=== PATIENT | female | born 1990 | race African-American/Black ===

== ENCOUNTER 2019-03-08 13:28 | Emergency (ER) | payer SELFPAY ==
[~2019-03-08] VITALS: Ht 165.1 cm; Wt 44.5 kg
[2019-03-08 13:32] VITALS: BP 110/66; TEMP 98.7
[2019-03-08 13:59] LABS: STREP SCREEN POSITIVE
[2019-03-08] MEDS ORDERED: AMOXICILLIN 50500 MG PO (14:18)
[2019-03-08 14:27] VITALS: PULSE 86
== END 2019-03-08 14:27 | disposition home or self-care (01) ==
LOC: COL.ER 13:28
PROVIDERS: Physician Assistant
DX: J02.0 Streptococcal pharyngitis (principal); F17.210 Nicotine dependence, cigarettes, uncomplicated

== ENCOUNTER → 2019-03-19 | Emergency (ER) | payer SELFPAY ==
[~2019-03-19] VITALS: Ht 165.1 cm; Wt 44.5 kg
[~2019-03-19] MED LIST: AMOXICILLIN 50500 MG PO
[2019-03-19 10:57] VITALS: BP 108/70; PULSE 96; TEMP 98.5
== END ==
LOC: COL.ER 10:52
DX: L29.9 Pruritus, unspecified (principal)

== ENCOUNTER 2020-02-14 17:55 | Emergency (ER) | payer SELFPAY ==
[~2020-02-14] VITALS: Ht 165.1 cm; Wt 49.1 kg
[2020-02-14 18:06] VITALS: TEMP 98
[2020-02-14 19:36] VITALS: BP 129/89; PULSE 96
== END 2020-02-14 19:36 | disposition home or self-care (01) ==
LOC: COL.ER 17:55
DX: J40 Bronchitis, not specified as acute or chronic (principal); Z20.828 Contact with and (suspected) exposure to other viral communicable diseases

== ENCOUNTER 2021-03-05 22:24 | Emergency (ER) | payer SELFPAY ==
[~2021-03-05] VITALS: Ht 165.1 cm; Wt 44.5 kg
[2021-03-05] MEDS ORDERED: IBU800 M1 PO (22:51)
[2021-03-05] MEDS ORDERED: AMOXICILLIN 8751 TAB PO (22:51)
[2021-03-05 22:55] VITALS: BP 110/67; PULSE 84; TEMP 98
== END 2021-03-05 22:55 | disposition home or self-care (01) ==
LOC: COL.ER 22:24
DX: S02.5XXA Fracture of tooth (traumatic), initial encounter for closed fracture (principal); K04.7 Periapical abscess without sinus; F17.210 Nicotine dependence, cigarettes, uncomplicated; X58.XXXA Exposure to other specified factors, initial encounter